=== PATIENT | female | born 1980 ===

== ENCOUNTER 2021-11-03 09:15 | Inpatient (IN) | payer OTHER ==
[~2021-11-03] VITALS: Ht 182.9 cm; Wt 59.0 kg
[2021-11-03] MEDS ORDERED: PEPCID AC20 MG (12:16)
[2021-11-03] MEDS ORDERED: DICY20TA (12:17)
[2021-11-10] MEDS ORDERED: ULTRAM50 MG PO (08:39)
[2021-11-10] MEDS ORDERED: LEVSIN/SL0.125 MG SL (08:40)
[2021-11-10] MEDS ORDERED: PEPCID AC20 MG PO (08:41)
[2021-11-10] MEDS ORDERED: GAS RELIEF125 M1 PO (08:43)
== END 2021-11-10 12:33 | disposition home or self-care (01) | DRG 331 ==
LOC: O/R 11-07 06:33 → SURG 11-07 06:33
PROVIDERS: ADMIT Surgery; ATTEND Surgery
PROC: 0DBV0ZZ Excision of Mesentery, Open Approach (ICD-10-PCS; 2021-11-07)
PROC: 0DNW0ZZ Release Peritoneum, Open Approach (ICD-10-PCS; 2021-11-07)
PROC: 0D9 Gastrointestinal System, Drainage (ICD-10-PCS; 2021-11-07)
PROC: 0DQ80ZZ Repair Small Intestine, Open Approach (ICD-10-PCS; principal; 2021-11-07 07:00)
DX: K56.51 Intestinal adhesions [bands], with partial obstruction (principal); K21.9 Gastro-esophageal reflux disease without esophagitis; K66.8 Other specified disorders of peritoneum; Z20.822 Contact with and (suspected) exposure to COVID-19; Z53.31 Laparoscopic surgical procedure converted to open procedure